=== PATIENT | male | born 1975 | race Caucasian/White ===

== ENCOUNTER 2017-01-30 18:47 | Emergency (ER) | payer BC, OTHER ==
[~2017-01-30] VITALS: Ht 185.4 cm; Wt 80.7 kg
[2017-01-30] MEDS ORDERED: LIDOCAINE 1% INJ 20 ML (XYLOCAINE) VIAL ONE (19:48)
[2017-01-30] MEDS ORDERED: LIDOCAINE 1% INJ 20 ML (XYLOCAINE) VIAL INJ ONE (20:00)
[2017-01-30] MEDS ORDERED: TRIM/SULFAMETH 160/800 (SEPTRA DS) TAB PO ONE (20:15)
[2017-01-30] MEDS ORDERED: SULF1TAB35 PO (20:23)
--- NOTE | 2017-01-30 20:23 | ED General ---
General Chief Complaint: Skin/Wound Problems Stated Complaint: BUMP ON R ARM SUTURE Nursing Triage Note: PT TO ED 7 W/ C/O POSS ABSCESS AT INCISION SITE. PT REPORTS HAD AREA OF TISSUE REMOVED DUE TO A BLACK SPIDER BITE ET NOTED REDNESS ET SWELLING TO SITE Nursing Sepsis Screen: No Definite Risk Source of Information: Patient Exam Limitations: No Limitations History of Present Illness Time Seen by Provider: 19:45 Initial Comments This pleasant 41-year-old gentleman presents to the emergency room with swelling and erythema on the right side of his right upper extremity incision. He was recently treated for black bite with tissue necrosis. He had excision of the necrotic tissue 2 weeks ago. [place] are still in place. Over the last couple of days he has noticed increased redness and swelling without drainage. His surgeon is Dr. Bright. He denies any fevers. Allergies and Home Medications Allergies Coded Allergies: No Known Drug Allergies (Unverified , 01/30/17) Home Medications Sulfamethoxazole/Trimethoprim 1 Each Tablet, 1 EACH PO BID, #14 Prescribed by: LYRIC CAMARGO on 01/30/172022 Constitutional: no symptoms reported EENTM: no symptoms reported Respiratory: no symptoms reported Cardiovascular: no symptoms reported Gastrointestinal: no symptoms reported Genitourinary: no symptoms reported Musculoskeletal: no symptoms reported Skin: see HPI Psychiatric/Neurological: No Symptoms Reported Hematologic/Lymphatic: No Symptoms Reported Past Ddtpxno-Xvorlu-Idobjr Hx Patient Social History Alcohol Use: Occasionally Uses Recreational Drug Use: No Smoking Status: Current Everyday Smoker Type Used: Cigarettes Recent Foreign Travel: No Contact w/Someone Who Travel: No Recent Infectious Disease Expo: No Recent Hopitalizations: No Surgeries HX Surgeries: Yes (debridement of necrotic spider bite on the anterior right upper arm) Surgeries: Orthopedic (ankle, finger) Respiratory Hx Respiratory Disorders: No Cardiovascular Hx Cardiac Disorders: No Neurological Hx Neurological Disorders: No Genitourinary Hx Genitourinary Disorders: No Gastrointestinal Hx Gastrointestinal Disorders: No Musculoskeletal Hx Musculoskeletal Disorders: No Endocrine Hx Endocrine Disorders: No HEENT HX ENT Disorders: No Cancer Hx Cancer: No Psychosocial Hx Psychiatric Problems: No Integumentary HX Skin/Integumentary Disorder: No Physical Exam Vital Signs Vital Sign - Last 12Hours 01/30/17 18:55 Temp 99.6 Pulse 106 Resp 20 B/P (MAP) 135/90 Pulse Ox 94 O2 Delivery Room Air Capillary Refill : Less Than 3 Seconds General Appearance: No Apparent Distress, WD/WN HEENT: TMs Normal Respiratory: Lungs Clear, Normal Breath Sounds, No Accessory Muscle Use, No Respiratory Distress Cardiovascular: Regular Rate, Rhythm, No Edema, No Murmur Extremity: Other (well-healing stapled incision the anterior right upper arm. Medial to the superior aspect of the incision is a 2 cm area of erythema and fluctuance swelling. There is no drainage. This area is mildly tender.) Neurologic/Psychiatric: Alert, Oriented x3, No Motor/Sensory Deficits, Normal Mood/Affect, ese teacher II-XII Norm as Tested Skin: Normal Color, Warm/Dry, Other (see above) Lymphatic: No Axilla Node Tender (R) I&D : Progress Skin was cleaned with alcohol. Approximately one mL of one percent lidocaine was injected for local anesthesia. Area was then scrubbed with chlorhexidine wipes. The staple immediately next to the area affected was removed. The incision was gently opened with iris scissors and forceps next to the area of swelling. Serosanguineous fluid drained and the area of swelling collapsed. The area of incision opened was approximately 5 mm. Patient tolerated the procedure well. Incision was dressed with antibiotic ointment and gauze. Progress/Results/Core Measures Results/Orders My Orders Orders - LYRIC VORA MD Lidocaine 1% Injection (Xylocaine 1% Inj (01/30/17 20:00) Lidocaine 1% Injection (Xylocaine 1% Inj (01/30/17 19:48) Sulfamethoxazole/Trimet Ds Tab (Bactrim (01/30/17 20:15) Medications Given in ED Vital Signs/I&O Blood Pressure Mean: 105 Progress Note : Progress Note Bedside ultrasound revealed a pocket of uncomplicated fluid. Staple nearest to this fluid was removed. The incision was gently opened at this site with iris scissors and forceps. Serosanguineous fluid was drained which would suggest seroma as a source. Bactrim DS was given prior to dismissal. Cultures were not obtained as there was no purulence to the drainage. Departure Impression Impression: Primary Impression: Seroma Disposition: 01 HOME, SELF-CARE Condition: Improved Departure-Patient Inst. Decision time for Depature: 20:00 Referrals: NO,LOCAL PHYSICIAN (PCP/Family) Primary Care Physician Patient Instructions: NO INSTRUCTIONS GIVEN Add. Discharge Instructions: Follow-up with your surgeon as previously instructed. Keep the wound covered while at work or in dirty environments. Complete your antibiotics as prescribed. Return to care if you have any further complications. The incision may drain for a few days. Report this complication to your surgeon. All discharge instructions reviewed with patient and/or family. Voiced understanding. Scripts Sulfamethoxazole/Trimethoprim (Bactrim Ds Tablet) 1 Each Tablet 1 EACH PO BID, #14 TAB Prov: LYRIC VORA MD 01/30/17 LYRIC VORA MD Jan 30, 2017 20:23
[2017-01-30 20:31] VITALS: BP 127/84
== END 2017-01-30 20:29 | disposition home or self-care (01) ==
LOC: ER 18:51
DX: L76.34 Postprocedural seroma of skin and subcutaneous tissue following other procedure (principal); F17.210 Nicotine dependence, cigarettes, uncomplicated
CPT/HCPCS: 99281